=== PATIENT | female | born 1960 | race Caucasian/White ===

== ENCOUNTER 2024-06-20 11:00 | Outpatient (CLI) | payer MEDICARE, MEDICAID ==
[~2024-06-20 11:00] MED LIST: ADV50250 IH; CALC-729 PO; DIPH-423 PO; ESTR-4 PO; LURA40TA PO; MAG400T PO; MELA10TA2 PO; OMEG-79 PO; OMEP-84 PO; OXCA300T39 PO; TIOT18CA7 IH
== END 2024-06-20 23:59 | disposition home or self-care (01) ==
LOC: RAD 11:00
PROVIDERS: ATTEND Family Medicine
DX: E07.9 Disorder of thyroid, unspecified (principal)
CPT/HCPCS: 76536